=== PATIENT | female | born 1980 | race Caucasian/White ===

== ENCOUNTER 2016-08-03 18:20 | Emergency (ER) | payer SELFPAY ==
[2016-08-03 19:36] LABS: BASOPHILS 0.1 % (0-2); EOSINOPHILS 0.3 % (0-7); HEMATOCRIT 49.9 % (36.0-48.0); HEMOGLOBIN 16.6 g/dL (12-16); IMMATURE GRANULOCYTES 0.3 % (0-5); MCH 31.4 pg (26.0-34.0); MCHC 33.3 g/dL (31.0-37.0); MCV 94.5 fL (80.0-100.0); MEAN PLATELET VOLUME 9.6 fL (7.4-10.4); MONOCYTES 11.9 % (2-11); NEUTROPHILS 73.4 % (40-80); RBC 5.28 10x6/uL (4.00-5.40); RDW 13.2 % (11.5-14.5); WBC 10.2 10x3/uL (4.8-10.8)
[2016-08-03 19:37] LABS: PLATELET COUNT 200 10x3/uL (130-400)
[2016-08-03 20:05] LABS: ALBUMIN 3.8 g/dL (3.4-5.0); ANION GAP 15.3 mmol/L (8-16); BILIRUBIN - TOTAL 0.34 mg/dL (0.2-1.3); CALCIUM 8.9 mg/dL (8.5-10.1); CARBON DIOXIDE 22.4 mmol/L (21.0-32.0); CREATININE - SERUM 0.9 mg/dL (0.6-1.3); POTASSIUM - SERUM 3.7 mmol/L (3.5-5.1)
[2016-08-03 23:30] LABS: APPEARANCE CLOUDY (CLEAR); BILIRUBIN NEGATIVE (NEGATIVE); COLOR DK YELLOW (YELLOW); GLUCOSE NEGATIVE (NEGATIVE); KETONE NEGATIVE (NEGATIVE); LEUKOCYTE ESTERASE TRACE (NEGATIVE); NITRITE NEGATIVE (NEGATIVE); PROTEIN 1+ mg/dL (NEGATIVE); SPECIFIC GRAVITY 1.025 (1.005-1.020); UROBILINOGEN NORMAL (NORMAL)
[2016-08-03 23:31] LABS: BACTERIA MODERATE /hpf (NONE SEEN); EPITHELIAL CELLS 0-5 /hpf (0-5); MUCUS <1+ /lpf (NONE SEEN); RED CELLS - URINE 0-5 /hpf (0-5); WHITE CELLS - URINE 0-5 /hpf (0-5)
== END 2016-08-04 00:45 | disposition home or self-care (01) ==
LOC: D.ER 18:20
PROVIDERS: Emergency Medicine
DX: K52.9 Noninfective gastroenteritis and colitis, unspecified (principal); N39.0 Urinary tract infection, site not specified; R10.9 Unspecified abdominal pain; J45.909 Unspecified asthma, uncomplicated; F17.200 Nicotine dependence, unspecified, uncomplicated

== ENCOUNTER 2018-01-04 00:43 | Emergency (ER) | payer SELFPAY ==
[~2018-01-04] VITALS: Ht 175.3 cm; Wt 122.7 kg
[2018-01-04 00:50] VITALS: Ht 175.3 cm; Wt 122.7 kg
[2018-01-04] MEDS ORDERED: MOBIC7.5 MG (00:51)
[2018-01-04] MEDS ORDERED: PRINZIDE 20/12.1 TA1 PO (00:51)
[2018-01-04] MEDS ORDERED: CYMBALTA60 MG (00:52)
[2018-01-04] MEDS ORDERED: GLUCOPHAGE500 MG (00:52)
[2018-01-04] MEDS ORDERED: NAPROSYN500 MG PO (01:32)
[2018-01-04 01:57] VITALS: BP 135/95
== END 2018-01-04 01:58 | disposition home or self-care (01) ==
LOC: D.ER 00:43
DX: S43.402A Unspecified sprain of left shoulder joint, initial encounter (principal); X58.XXXA Exposure to other specified factors, initial encounter; Y93.89 Activity, other specified; Y92.89 Other specified places as the place of occurrence of the external cause; S29.011A Strain of muscle and tendon of front wall of thorax, initial encounter; E11.9 Type 2 diabetes mellitus without complications; I10 Essential (primary) hypertension; M32.9 Systemic lupus erythematosus, unspecified; F17.200 Nicotine dependence, unspecified, uncomplicated

== ENCOUNTER 2018-03-30 21:42 | Emergency (ER) | payer SELFPAY ==
[~2018-03-30] VITALS: Ht 175.3 cm; Wt 130.5 kg
[~2018-03-30 21:42] MED LIST: CYMBALTA60 MG; GLUCOPHAGE500 MG; MOBIC7.5 MG; NAPROSYN500 MG PO; PRINZIDE 20/12.1 TA1 PO
[2018-03-30 21:59] VITALS: Ht 175.3 cm; Wt 130.5 kg
[2018-03-30] MEDS ORDERED: INDOCIN25 MG PO (22:00)
[2018-03-30 23:10] LABS: BASOPHILS 0.3 % (0-2); EOSINOPHILS 1.4 % (0-7); HEMATOCRIT 44.2 % (36.0-48.0); HEMOGLOBIN 14.8 g/dL (12-16); IMMATURE GRANULOCYTES 0.2 % (0-5); MCH 31.4 pg (26.0-34.0); MCHC 33.5 g/dL (31.0-37.0); MCV 93.6 fL (80.0-100.0); MEAN PLATELET VOLUME 9.3 fL (7.4-10.4); MONOCYTES 8.5 % (2-11); NEUTROPHILS 62.6 % (40-80); RBC 4.72 10x6/uL (4.00-5.40); WBC 14.4 10x3/uL (4.8-10.8)
[2018-03-30 23:12] LABS: PLATELET COUNT 275 10x3/uL (130-400)
[2018-03-30 23:18] LABS: APPEARANCE HAZY (CLEAR); COLOR YELLOW (YELLOW); GLUCOSE 250 mg/dL (NEGATIVE); KETONE NEGATIVE (NEGATIVE); NITRITE NEGATIVE (NEGATIVE); PROTEIN NEGATIVE (NEGATIVE); SPECIFIC GRAVITY 1.025 (1.005-1.020)
[2018-03-30 23:19] LABS: BILIRUBIN NEGATIVE (NEGATIVE); UROBILINOGEN NORMAL (NORMAL)
[2018-03-30 23:21] LABS: BACTERIA MODERATE /hpf (NONE SEEN); EPITHELIAL CELLS 0-5 /hpf (0-5); RED CELLS - URINE 0-5 /hpf (0-5); WHITE CELLS - URINE 0-5 /hpf (0-5)
[2018-03-30 23:27] LABS: ALBUMIN 3.6 g/dL (3.4-5.0); ALKALINE PHOSPHATASE 52 U/L (46-116); ALT (SGPT) 28 U/L (10-68); BILIRUBIN - TOTAL 0.33 mg/dL (0.2-1.3); CALC OSMOLALITY 281 mosm/kg (275-300); CARBON DIOXIDE 26.5 mmol/L (21.0-32.0); CHLORIDE - SERUM 101 mmol/L (98-107); CREATININE - SERUM 0.9 mg/dL (0.6-1.3); POTASSIUM - SERUM 3.3 mmol/L (3.5-5.1); PROTEIN - SERUM 7.6 g/dL (6.4-8.2); SODIUM 140 mmol/L (136-145); UREA NITROGEN 13 mg/dL (7-18); eGFR NON AFRICAN AMERICAN 74 mL/min (90-120)
[2018-03-30 23:28] LABS: GLUCOSE 158 mg/dL (74-106)
[2018-03-30 23:29] LABS: AMYLASE - SERUM 44 U/L (25-115); LIPASE 139 U/L (73-393)
[2018-03-30 23:34] LABS: TROPONIN-I < 0.017 ng/mL (0.000-0.060)
[2018-03-31] MEDS ORDERED: CYCLOBENZAPRINE10 MG PO (00:41)
[2018-03-31] MEDS ORDERED: CLEOCIN HCL300 MG PO (00:41)
[2018-03-31 01:03] VITALS: BP 147/82
== END 2018-03-31 01:03 | disposition home or self-care (01) ==
LOC: D.ER 21:42
PROVIDERS: Family Medicine
DX: M54.5 Low back pain (principal); L03.221 Cellulitis of neck; E11.9 Type 2 diabetes mellitus without complications; I10 Essential (primary) hypertension; M32.9 Systemic lupus erythematosus, unspecified

== ENCOUNTER 2018-04-11 18:37 | Emergency (ER) | payer SELFPAY ==
[~2018-04-11] VITALS: Ht 175.3 cm; Wt 126.4 kg
[~2018-04-11 18:37] MED LIST changes: +CLEOCIN HCL300 MG PO; +CYCLOBENZAPRINE10 MG PO; +INDOCIN25 MG PO
[2018-04-11 18:40] VITALS: Ht 175.3 cm; Wt 126.4 kg
[2018-04-11] MEDS ORDERED: PROVENTIL/2.5 MG/3 M INH (21:46)
[2018-04-11] MEDS ORDERED: STERAPRED DS 1010 MG PO (21:46)
[2018-04-11] MEDS ORDERED: ZPAK PO (21:46)
[2018-04-11 22:32] VITALS: BP 124/76
== END 2018-04-11 22:32 | disposition home or self-care (01) ==
LOC: D.ER 18:37
DX: J40 Bronchitis, not specified as acute or chronic (principal); R09.89 Other specified symptoms and signs involving the circulatory and respiratory systems; M79.18 Myalgia, other site; R50.9 Fever, unspecified

== ENCOUNTER 2018-04-25 18:02 | Emergency (ER) | payer MEDICAID ==
[~2018-04-25] VITALS: Ht 175.3 cm; Wt 104.5 kg
[~2018-04-25 18:02] MED LIST changes: +PROVENTIL/2.5 MG/3 M INH; +STERAPRED DS 1010 MG PO; +ZPAK PO
[2018-04-25 18:10] VITALS: BP 113/72; Ht 175.3 cm; Wt 104.5 kg
== END 2018-04-25 20:55 | disposition left against medical advice (07) ==
LOC: D.ER 18:02
DX: R05 Cough (principal)

== ENCOUNTER 2018-10-17 14:50 | Emergency (ER) | payer MEDICAID ==
[~2018-10-17] VITALS: Ht 167.6 cm; Wt 139.1 kg
[2018-10-17] MEDS ORDERED: ADIPEX-P37.5 MG PO (15:02)
[2018-10-17] MEDS ORDERED: VITAMIN D5000 UNIT PO (15:03)
[2018-10-17 15:15] VITALS: BP 142/104
[2018-10-17 15:35] VITALS: Ht 167.6 cm; Wt 139.1 kg
[2018-10-17] MEDS ORDERED: DOXYCYCLINE HY100 M2 PO (15:54)
[2018-10-17] MEDS ORDERED: ULTRAM50 MG PO (15:54)
[2018-10-17] MEDS ORDERED: CLEOCIN HCL300 MG PO (15:54)
== END 2018-10-17 16:31 | disposition home or self-care (01) ==
LOC: D.ER 14:50
DX: L03.319 Cellulitis of trunk, unspecified (principal)